=== PATIENT | male | born 1950 | race African-American/Black ===

== ENCOUNTER 2022-05-05 09:07 | Inpatient (IN) | payer MEDICARE ==
[~2022-05-05] VITALS: Ht 177.8 cm; Wt 77.1 kg
[2022-05-05] MEDS ORDERED: SODIUM CHLORIDE 0.9% 1000ML 1,000 ML IV STA ×2 (09:50→12:54)
[2022-05-05 10:13] LABS: BASOPHILS % 0.2 % (0.0-1.0); EOSINOPHILS % 0.1 % (0.0-6.0); HEMOGLOBIN 13.6 g/dL (14.0-18.0); LYMPHOCYTES # (AUTO) 0.8 (1.0-3.2); LYMPHOCYTES % 5.8 % (18.0-39.1); MEAN CORPUSCULAR HEMOGLOBIN 26.8 pg (28-32); MEAN CORPUSCULAR HGB CONC 32.4 g/dL (31-35); MEAN CORPUSCULAR VOLUME 82.7 fL (81-99); MONOCYTES % 7.9 % (4.4-11.3); NEUTROPHILS # (AUTO) 11.1 (2.1-6.9); NEUTROPHILS % 85.8 % (38.7-80.0); PLATELET COUNT 202 x10e3/uL (140-360); RED BLOOD COUNT 5.08 x10e6/uL (4.3-5.7); RED CELL DISTRIBUTION WIDTH 18.8 % (11.7-14.4)
[2022-05-05 10:18] LABS: INR 1.12; PROTHROMBIN TIME 15.4 seconds (11.9-14.5)
[2022-05-05 10:19] LABS: PARTIAL THROMBOPLASTIN TIME 40.5 seconds (23.8-35.5)
[2022-05-05 10:26] LABS: ALANINE AMINOTRANSFERASE 19 IU/L (0-55); ALBUMIN/GLOBULIN RATIO 0.7 (0.8-2.0); ALKALINE PHOSPHATASE 69 IU/L (40-150); ANION GAP 13.8 mmol/L (8-16); BLOOD UREA NITROGEN 16 mg/dL (7-26); BUN/CREATININE RATIO 13 (6-25); CALCIUM 8.7 mg/dL (8.4-10.2); CARBON DIOXIDE 29 mmol/L (22-29); CHLORIDE 99 mmol/L (98-107); CREATINE KINASE 111 IU/L (30-200); CREATININE, SERUM 1.23 mg/dL (0.72-1.25); GLUCOSE 130 mg/dL (74-118); MAGNESIUM 2.5 MG/DL (1.3-2.1); POTASSIUM 3.8 mmol/L (3.5-5.1); SODIUM 138 mmol/L (136-145)
[2022-05-05] MEDS ORDERED: HYDROCODONE/APAP 5MG-325MG TAB PO ONE (10:30)
[2022-05-05] MEDS ORDERED: IOPAMIDOL 370 MG/ML 100 ML INFUS..BTL INJ ONE (11:31)
[2022-05-05] MEDS ORDERED: ALBUTEROL SULFATE HFA 8GM INHALATION AEROSOL INH PRN (12:15)
[2022-05-05] MEDS ORDERED: ONDANSETRON HCL INJ 2MG/ML 2ML 2 MG/ML VIAL IV PRN (13:30)
[2022-05-05] MEDS: IPRATROPIUM BROMIDE 0.02% 2.5 ML NEB NEB SCH ×2 (13:55→20:05)
[2022-05-05] MEDS: ALBUTEROL SULF 0.083% NEB SOLN 3 ML NEB NEB SCH ×3 (13:55→23:45)
[2022-05-05] MEDS: SODIUM CHLORIDE 0.9% 1000ML 1,000 ML IV SCH ×2 (15:15→21:44)
[2022-05-05] MEDS: HYDROCODONE/APAP 5MG-325MG TAB PO PRN ×2 (16:38→21:41)
[2022-05-05 17:44] VITALS: BP 128/71
[2022-05-05 17:46] VITALS: BP 128/71
[2022-05-05 17:49] VITALS: BP 128/71
[2022-05-05 18:13] LABS: CREATINE KINASE 101 IU/L (30-200)
[2022-05-05] MEDS ORDERED: ELIQUIS2.5 MG PO (18:13)
[2022-05-05] MEDS ORDERED: METOPROLOL SUCC50 MG PO (18:13)
[2022-05-05 20:00] VITALS: BP 114/77
[2022-05-05 20:30] VITALS: BP 114/77
[2022-05-06] VITALS (8 sets, daily range): BP systolic 103–141; BP diastolic 60–78
[2022-05-06] MEDS ORDERED: ALBUTEROL/IPRATROPIUM 3 ML NEB NEB PRN
[2022-05-06] MEDS ORDERED: ACETAMINOPHEN 325 MG TAB PO PRN
[2022-05-06] MEDS ORDERED: MAGNESIUM/ALUMINUM/SIMETHICONE 30 ML UDC PO PRN
[2022-05-06] MEDS: APIXAB 2.5 MG TABLET PO SCH ×2 (00:56→08:50)
[2022-05-06] MEDS: METHYLPREDNISOLONE SOD SUCC 40 MG/ML VIAL 1ML IV SCH ×4 (00:57→20:52)
[2022-05-06] MEDS: ALBUTEROL/IPRATROPIUM 3 ML NEB NEB SCH ×4 (03:15→20:25)
[2022-05-06] MEDS: HYDROCODONE/APAP 5MG-325MG TAB PO PRN ×2 (03:37→11:54)
[2022-05-06] MEDS: METOPROLOL SUCCINATE 50 MG TAB XL PO SCH ×2 (06:00→08:51)
[2022-05-06 06:10] LABS: BASOPHILS % 0.2 % (0.0-1.0); HEMATOCRIT 38.4 % (38.2-49.6); HEMOGLOBIN 12.4 g/dL (14.0-18.0); LYMPHOCYTES # (AUTO) 0.3 (1.0-3.2); LYMPHOCYTES % 2.7 % (18.0-39.1); MEAN CORPUSCULAR HEMOGLOBIN 26.6 pg (28-32); MEAN CORPUSCULAR HGB CONC 32.3 g/dL (31-35); MEAN CORPUSCULAR VOLUME 82.2 fL (81-99); MONOCYTES # (AUTO) 0.2 (0.2-0.8); NEUTROPHILS # (AUTO) 11.1 (2.1-6.9); NEUTROPHILS % 94.8 % (38.7-80.0); PLATELET COUNT 210 x10e3/uL (140-360); RED BLOOD COUNT 4.67 x10e6/uL (4.3-5.7); RED CELL DISTRIBUTION WIDTH 18.7 % (11.7-14.4)
[2022-05-06 06:48] LABS: ALBUMIN 2.7 g/dL (3.5-5.0); ALBUMIN/GLOBULIN RATIO 0.7 (0.8-2.0); ANION GAP 17.9 mmol/L (8-16); CALCIUM 8.4 mg/dL (8.4-10.2); CREATININE, SERUM 0.87 mg/dL (0.72-1.25); POTASSIUM 3.9 mmol/L (3.5-5.1)
[2022-05-06 07:26] LABS: CREATINE KINASE MB 1.2 ng/mL (0-5.0)
[2022-05-06] MEDS ORDERED: ALPRAZOLAM 0.25 MG TAB PO PRN (08:15)
[2022-05-06] MEDS: FAMOTIDINE 20 MG TAB PO SCH ×2 (08:50→17:17)
[2022-05-06] MEDS ORDERED: CITRATE OF MAGNESIA 300ML BOTTLE PO ONE (10:15)
[2022-05-06] MEDS ORDERED: POLYETHYLENE GLYCOL 3350 17 GM PACK PO PRN (10:15)
[2022-05-06] MEDS ORDERED: NICOTINE 14 MG/EA PATCH TOP PRN (10:30)
[2022-05-06] MEDS ORDERED: MELATONIN 5 MG TABLET PO PRN (11:15)
[2022-05-06] MEDS: POLYETHYLENE GLYCOL 3350 17 GM PACK PO SCH ×2 (11:15→17:19)
[2022-05-06] MEDS: SENNA-S TABLET PO SCH ×2 (11:54→17:17)
[2022-05-06] MEDS: DIAZEPAM 5 MG TAB PO PRN ×2 (14:28→20:53)
[2022-05-06 15:06] LABS: CREATINE KINASE 201 IU/L (30-200)
[2022-05-06] MEDS: SODIUM CHLORIDE 0.9% 1000ML 1,000 ML IV SCH (15:35)
[2022-05-06] MEDS: MIRTAZAPINE 15 MG TAB PO SCH (20:52)
[2022-05-06] MEDS: LACTULOSE SYRUP 20 GM/30 ML UDC PO PRN (20:52)
[2022-05-07] VITALS (9 sets, daily range): BP systolic 120–144; BP diastolic 66–88
[2022-05-07] MEDS: HYDROCODONE/APAP 5MG-325MG TAB PO PRN ×5 (01:24→23:01)
[2022-05-07] MEDS: SODIUM CHLORIDE 0.9% 1000ML 1,000 ML IV SCH ×2 (01:25→11:52)
[2022-05-07] MEDS: ALBUTEROL/IPRATROPIUM 3 ML NEB NEB SCH ×4 (01:50→19:45)
[2022-05-07] MEDS: METHYLPREDNISOLONE SOD SUCC 40 MG/ML VIAL 1ML IV SCH ×3 (05:51→21:41)
[2022-05-07 07:03] LABS: BASOPHILS % 0.1 % (0.0-1.0); HEMOGLOBIN 11.4 g/dL (14.0-18.0); LYMPHOCYTES # (AUTO) 0.7 (1.0-3.2); LYMPHOCYTES % 4.8 % (18.0-39.1); MEAN CORPUSCULAR HEMOGLOBIN 26.8 pg (28-32); MEAN CORPUSCULAR HGB CONC 32.6 g/dL (31-35); MEAN CORPUSCULAR VOLUME 82.2 fL (81-99); MONOCYTES # (AUTO) 0.6 (0.2-0.8); MONOCYTES % 4.3 % (4.4-11.3); NEUTROPHILS # (AUTO) 12.7 (2.1-6.9); NEUTROPHILS % 90.3 % (38.7-80.0); PLATELET COUNT 238 x10e3/uL (140-360); RED BLOOD COUNT 4.26 x10e6/uL (4.3-5.7); RED CELL DISTRIBUTION WIDTH 18.5 % (11.7-14.4)
[2022-05-07 07:26] LABS: INR 1.05; PROTHROMBIN TIME 14.6 seconds (11.9-14.5)
[2022-05-07] MEDS: DIAZEPAM 5 MG TAB PO PRN (08:46)
[2022-05-07] MEDS: AZITHROMYCIN 250 MG TAB PO SCH (08:47)
[2022-05-07] MEDS: FAMOTIDINE 20 MG TAB PO SCH ×2 (08:47→16:04)
[2022-05-07] MEDS: METOPROLOL SUCCINATE 50 MG TAB XL PO SCH (08:47)
[2022-05-07] MEDS: POLYETHYLENE GLYCOL 3350 17 GM PACK PO SCH ×2 (08:49→17:00)
[2022-05-07] MEDS: SENNA-S TABLET PO SCH ×2 (08:50→17:00)
[2022-05-07] MEDS: MIRTAZAPINE 15 MG TAB PO SCH (21:41)
[2022-05-08] VITALS (7 sets, daily range): BP systolic 137–151; BP diastolic 75–90
[2022-05-08] MEDS: ALBUTEROL/IPRATROPIUM 3 ML NEB NEB SCH ×4 (00:35→19:30)
[2022-05-08] MEDS: SODIUM CHLORIDE 0.9% 1000ML 1,000 ML IV SCH ×2 (00:39→16:12)
[2022-05-08] MEDS: DIAZEPAM 5 MG TAB PO PRN ×3 (00:39→13:50)
[2022-05-08] MEDS: METHYLPREDNISOLONE SOD SUCC 40 MG/ML VIAL 1ML IV SCH ×2 (06:00→16:18)
[2022-05-08] MEDS: HYDROCODONE/APAP 5MG-325MG TAB PO PRN ×3 (06:19→16:20)
[2022-05-08] MEDS: FAMOTIDINE 20 MG TAB PO SCH ×2 (07:30→16:14)
[2022-05-08] MEDS: POLYETHYLENE GLYCOL 3350 17 GM PACK PO SCH ×2 (07:37→16:14)
[2022-05-08] MEDS: SENNA-S TABLET PO SCH ×3 (07:37→16:13)
[2022-05-08] MEDS: AZITHROMYCIN 250 MG TAB PO SCH (10:47)
[2022-05-08] MEDS ORDERED: ONDANSETRON HCL 4 MG ORAL DISINTEGRATING TAB PO PRN (13:30)
[2022-05-08] MEDS: LACTULOSE SYRUP 20 GM/30 ML UDC PO PRN (20:39)
[2022-05-08] MEDS: MIRTAZAPINE 15 MG TAB PO SCH (20:43)
[2022-05-09] VITALS: BP 149/92
[2022-05-09] MEDS: ALBUTEROL/IPRATROPIUM 3 ML NEB NEB SCH ×4 (00:47→20:10)
[2022-05-09] MEDS: HYDROCODONE/APAP 5MG-325MG TAB PO PRN ×2 (00:54→09:51)
[2022-05-09] MEDS: SODIUM CHLORIDE 0.9% 1000ML 1,000 ML IV SCH ×2 (04:32→17:12)
[2022-05-09 06:18] LABS: BASOPHILS % 0.1 % (0.0-1.0); EOSINOPHILS % 0.2 % (0.0-6.0); HEMATOCRIT 36.7 % (38.2-49.6); HEMOGLOBIN 11.5 g/dL (14.0-18.0); LYMPHOCYTES # (AUTO) 1.6 (1.0-3.2); LYMPHOCYTES % 18.3 % (18.0-39.1); MEAN CORPUSCULAR HEMOGLOBIN 25.8 pg (28-32); MEAN CORPUSCULAR HGB CONC 31.3 g/dL (31-35); MEAN CORPUSCULAR VOLUME 82.5 fL (81-99); MONOCYTES # (AUTO) 0.8 (0.2-0.8); MONOCYTES % 9.4 % (4.4-11.3); NEUTROPHILS # (AUTO) 6.4 (2.1-6.9); NEUTROPHILS % 71.8 % (38.7-80.0); PLATELET COUNT 307 x10e3/uL (140-360); RED BLOOD COUNT 4.45 x10e6/uL (4.3-5.7); RED CELL DISTRIBUTION WIDTH 18.4 % (11.7-14.4)
[2022-05-09 06:54] LABS: ANION GAP 11.4 mmol/L (8-16); CALCIUM 8.4 mg/dL (8.4-10.2); CREATININE, SERUM 0.93 mg/dL (0.72-1.25); POTASSIUM 3.4 mmol/L (3.5-5.1)
[2022-05-09 07:53] VITALS: BP 140/92
[2022-05-09 08:48] VITALS: BP 140/92
[2022-05-09] MEDS: POLYETHYLENE GLYCOL 3350 17 GM PACK PO SCH ×3 (09:00→16:57)
[2022-05-09] MEDS ORDERED: METOPROLOL SUCCINATE 50 MG TAB XL PO SCH (09:00)
[2022-05-09] MEDS: SENNA-S TABLET PO SCH ×3 (09:00→16:57)
[2022-05-09] MEDS: AZITHROMYCIN 250 MG TAB PO SCH (09:40)
[2022-05-09] MEDS: METHYLPREDNISOLONE SOD SUCC 40 MG/ML VIAL 1ML IV SCH ×2 (09:40→17:18)
[2022-05-09] MEDS: FAMOTIDINE 20 MG TAB PO SCH ×2 (09:41→17:18)
[2022-05-09] MEDS ORDERED: POTASSIUM CHLORIDE 20 MEQ TAB CR PO ONE (10:30)
[2022-05-09 11:51] VITALS: BP 155/101
[2022-05-09] MEDS: DIAZEPAM 5 MG TAB PO PRN ×2 (12:19→19:36)
[2022-05-09 15:52] VITALS: BP 150/91
[2022-05-09 20:00] VITALS: BP 142/94
[2022-05-09] MEDS: MIRTAZAPINE 15 MG TAB PO SCH (20:45)
[2022-05-10] VITALS (7 sets, daily range): BP systolic 104–167; BP diastolic 70–100
[2022-05-10] MEDS: HYDROCODONE/APAP 5MG-325MG TAB PO PRN ×2 (00:53→12:09)
[2022-05-10] MEDS: ALBUTEROL/IPRATROPIUM 3 ML NEB NEB SCH ×4 (01:20→19:45)
[2022-05-10 05:57] LABS: EOSINOPHILS % 0.2 % (0.0-6.0); HEMATOCRIT 36.9 % (38.2-49.6); LYMPHOCYTES # (AUTO) 1.4 (1.0-3.2); LYMPHOCYTES % 14.1 % (18.0-39.1); MEAN CORPUSCULAR HEMOGLOBIN 26.1 pg (28-32); MEAN CORPUSCULAR HGB CONC 32.5 g/dL (31-35); MEAN CORPUSCULAR VOLUME 80.2 fL (81-99); MONOCYTES # (AUTO) 0.8 (0.2-0.8); MONOCYTES % 7.8 % (4.4-11.3); NEUTROPHILS # (AUTO) 7.5 (2.1-6.9); NEUTROPHILS % 77.5 % (38.7-80.0); PLATELET COUNT 405 x10e3/uL (140-360); RED CELL DISTRIBUTION WIDTH 18.4 % (11.7-14.4)
[2022-05-10 06:06] LABS: INR 1.02; PROTHROMBIN TIME 14.3 seconds (11.9-14.5)
[2022-05-10 06:23] LABS: ANION GAP 16.4 mmol/L (8-16); CALCIUM 8.5 mg/dL (8.4-10.2); CREATININE, SERUM 1.02 mg/dL (0.72-1.25); POTASSIUM 3.4 mmol/L (3.5-5.1)
[2022-05-10] MEDS: SODIUM CHLORIDE 0.9% 1000ML 1,000 ML IV SCH ×2 (06:32→20:49)
[2022-05-10] MEDS: FAMOTIDINE 20 MG TAB PO SCH ×2 (07:30→17:14)
[2022-05-10] MEDS: POLYETHYLENE GLYCOL 3350 17 GM PACK PO SCH ×2 (09:00→17:14)
[2022-05-10] MEDS: SENNA-S TABLET PO SCH ×2 (09:00→17:14)
[2022-05-10] MEDS ORDERED: AMLODIPINE BESYLATE 5 MG TAB PO SCH (09:00)
[2022-05-10] MEDS: HYDRALAZINE HCL 20 MG/ML VIAL IV PRN (09:15)
[2022-05-10] MEDS: METHYLPREDNISOLONE SOD SUCC 40 MG/ML VIAL 1ML IV SCH (09:15)
[2022-05-10] MEDS ORDERED: POTASSIUM CHLORIDE 20MEQ/100ML 100 ML IV ONE (10:00)
[2022-05-10] MEDS ORDERED: LIDOCAINE HCL 4% 50 ML BTL ONE (10:29)
[2022-05-10] MEDS ORDERED: LIDOCAINE JELLY 2% 10ML URO-JET ONE (10:33)
[2022-05-10] MEDS: AZITHROMYCIN 250 MG TAB PO SCH (12:08)
[2022-05-10] MEDS: LACTULOSE SYRUP 20 GM/30 ML UDC PO PRN (12:25)
[2022-05-10 12:33] LABS: BODY FLUID APPEARANCE SL.CLOUDY; BODY FLUID COLOR COLORLESS
[2022-05-10] MEDS ORDERED: POVIDONE IODINE 0.05% 0.05 % ML PO ONE (12:41)
[2022-05-10] MEDS ORDERED: ONDANSETRON HCL INJ 2MG/ML 2ML 2 MG/ML VIAL ONE (12:41)
[2022-05-10] MEDS ORDERED: LIDOCAINE HCL 2% LOCAL INJ 5 ML SDV VIAL INJ ONE (12:41)
[2022-05-10] MEDS ORDERED: DEXAMETHASONE SOD PHOS INJ 4 MG/ML SDV ONE (12:41)
[2022-05-10] MEDS ORDERED: SEVOFLURANE INHAL SOLN 250 ML PEN BTL ONE (12:41)
[2022-05-10] MEDS ORDERED: PROPOFOL IV EMULSION 10 MG/ML 20 ML VIAL ONE (12:41)
[2022-05-10] MEDS ORDERED: MIDAZOLAM HCL 2 MG/2 ML VIAL ONE (12:51)
[2022-05-10] MEDS ORDERED: FENTANYL CITRATE/PF 100MCG/2 ML INJ ONE (12:51)
[2022-05-10 12:59] LABS: RBC,BODY FLUID 1000 cells/uL; WBC,BODY FLUID 188 cells/uL
[2022-05-10 14:38] LABS: LYMPHOCYTES,BODY FLUID 5 %; MONO/MACROPHG,BODY FLUID 20 %; NEUTROPHILS,BODY FLUID 75 %
[2022-05-10] MEDS: AMIODARONE HCL 200 MG TAB PO SCH (15:35)
[2022-05-10] MEDS: DIAZEPAM 5 MG TAB PO PRN (17:14)
[2022-05-10] MEDS: MIRTAZAPINE 15 MG TAB PO SCH (20:46)
[2022-05-11] MEDS: ALBUTEROL/IPRATROPIUM 3 ML NEB NEB SCH ×2 (01:00→07:10)
[2022-05-11 04:00] VITALS: BP 179/99
[2022-05-11] MEDS: HYDRALAZINE HCL 20 MG/ML VIAL IV PRN (06:19)
[2022-05-11] MEDS ORDERED: METHYLPREDNISOLONE SOD SUCC 40 MG/ML VIAL 1ML IV SCH (07:30)
[2022-05-11] MEDS: FAMOTIDINE 20 MG TAB PO SCH (07:36)
[2022-05-11] MEDS: DIAZEPAM 5 MG TAB PO PRN (07:36)
[2022-05-11 08:00] VITALS: BP 138/91
[2022-05-11 08:24] VITALS: BP 138/91
[2022-05-11] MEDS: AMIODARONE HCL 200 MG TAB PO SCH (08:51)
[2022-05-11] MEDS: AZITHROMYCIN 250 MG TAB PO SCH (08:51)
[2022-05-11] MEDS: SENNA-S TABLET PO SCH (08:51)
[2022-05-11] MEDS: POLYETHYLENE GLYCOL 3350 17 GM PACK PO SCH (08:54)
[2022-05-11] MEDS ORDERED: AMLODIPINE BESYLATE 5 MG TAB PO SCH (09:00)
[2022-05-11] MEDS: HYDROCODONE/APAP 5MG-325MG TAB PO PRN (09:54)
== END 2022-05-11 10:34 | disposition home or self-care (01) | DRG 871 ==
LOC: ER 09:47 → ERHOLD 13:31 → MED/SURG3 15:50
PROVIDERS: ADMIT Internal Medicine; ATTEND Internal Medicine
PROC: 3E03329 Introduction of Other Anti-infective into Peripheral Vein, Percutaneous Approach (ICD-10-PCS; 2022-05-05)
PROC: 0B948ZZ Drainage of Right Upper Lobe Bronchus, Via Natural or Artificial Opening Endoscopic (ICD-10-PCS; 2022-05-10)
PROC: 0BD88ZX Extraction of Left Upper Lobe Bronchus, Via Natural or Artificial Opening Endoscopic, Diagnostic (ICD-10-PCS; 2022-05-10)
PROC: 0BD48ZX Extraction of Right Upper Lobe Bronchus, Via Natural or Artificial Opening Endoscopic, Diagnostic (ICD-10-PCS; 2022-05-10)
PROC: 0B988ZZ Drainage of Left Upper Lobe Bronchus, Via Natural or Artificial Opening Endoscopic (ICD-10-PCS; principal; 2022-05-10 10:35)
DX: A41.9 Sepsis, unspecified organism (principal); J18.1 Lobar pneumonia, unspecified organism; J44.0 Chronic obstructive pulmonary disease with (acute) lower respiratory infection; J44.1 Chronic obstructive pulmonary disease with (acute) exacerbation; R91.8 Other nonspecific abnormal finding of lung field; Z86.711 Personal history of pulmonary embolism; Z79.01 Long term (current) use of anticoagulants; I49.1 Atrial premature depolarization; R63.4 Abnormal weight loss; I48.91 Unspecified atrial fibrillation; G47.00 Insomnia, unspecified; F32.9 Major depressive disorder, single episode, unspecified; F41.0 Panic disorder [episodic paroxysmal anxiety]; Z20.822 Contact with and (suspected) exposure to COVID-19; F17.200 Nicotine dependence, unspecified, uncomplicated; R62.7 Adult failure to thrive; Z68.24 Body mass index [BMI] 24.0-24.9, adult; J38.01 Paralysis of vocal cords and larynx, unilateral; Z99.81 Dependence on supplemental oxygen
CPT/HCPCS: 31622; 36415; 71045; 71260; 80048; 80053; 82550; 82553; 83605; 83735; 83880; 84443; 84484; 85025; 85379; 85610; 85730; 86480; 87040; 87070; 87102; 87116; 87205; 87206; 88104; 88112; 88300; 88305; 89051; 93005; 93306; 94640; 94799; 96361; 99285; J0360; J0456; J0696; J1100; J2001; J2250; J2405; J2543; J2920; J3010; J3480; J7030; J7050; Q9967

== ENCOUNTER → 2022-06-05 | Outpatient (CLI) | payer MEDICARE ==
[~2022-06-05] MED LIST: ELIQUIS2.5 MG PO; METOPROLOL SUCC50 MG PO
== END ==
LOC: CT 10:07
PROVIDERS: ATTEND Internal Medicine Pulmonary Disease
DX: R91.8 Other nonspecific abnormal finding of lung field (principal)
CPT/HCPCS: 71250

== ENCOUNTER 2022-06-11 16:37 | Emergency (ER) | payer MEDICARE ==
[~2022-06-11] VITALS: Ht 330.2 cm; Wt 77.1 kg
[2022-06-11 17:00] LABS: BASOPHILS % 0.5 % (0.0-1.0); EOSINOPHILS # (AUTO) 0.2 (0.0-0.4); EOSINOPHILS % 1.8 % (0.0-6.0); HEMATOCRIT 39.5 % (38.2-49.6); HEMOGLOBIN 12.4 g/dL (14.0-18.0); LYMPHOCYTES # (AUTO) 1.2 (1.0-3.2); LYMPHOCYTES % 13.9 % (18.0-39.1); MEAN CORPUSCULAR HEMOGLOBIN 25.9 pg (28-32); MEAN CORPUSCULAR HGB CONC 31.4 g/dL (31-35); MEAN CORPUSCULAR VOLUME 82.5 fL (81-99); MONOCYTES # (AUTO) 0.7 (0.2-0.8); NEUTROPHILS # (AUTO) 6.6 (2.1-6.9); NEUTROPHILS % 75.6 % (38.7-80.0); PLATELET COUNT 673 x10e3/uL (140-360); RED BLOOD COUNT 4.79 x10e6/uL (4.3-5.7); RED CELL DISTRIBUTION WIDTH 19.3 % (11.7-14.4)
[2022-06-11 17:22] LABS: INR 1.02; PARTIAL THROMBOPLASTIN TIME 35.3 seconds (23.8-35.5); PROTHROMBIN TIME 14.3 seconds (11.9-14.5)
[2022-06-11 17:29] LABS: ALANINE AMINOTRANSFERASE 12 IU/L (0-55); ALBUMIN 3.6 g/dL (3.5-5.0); ALBUMIN/GLOBULIN RATIO 0.9 (0.8-2.0); ALKALINE PHOSPHATASE 78 IU/L (40-150); ANION GAP 18.9 mmol/L (8-16); BLOOD UREA NITROGEN 13 mg/dL (7-26); BUN/CREATININE RATIO 9 (6-25); CALCIUM 8.5 mg/dL (8.4-10.2); CARBON DIOXIDE 20 mmol/L (22-29); CHLORIDE 104 mmol/L (98-107); CREATINE KINASE 376 IU/L (30-200); CREATININE, SERUM 1.37 mg/dL (0.72-1.25); GLUCOSE 108 mg/dL (74-118); POTASSIUM 3.9 mmol/L (3.5-5.1); SODIUM 139 mmol/L (136-145)
[2022-06-11] MEDS ORDERED: ASPIRIN 81 MG CHEW TAB PO ONE (18:45)
== END 2022-06-11 19:17 | disposition home or self-care (01) ==
LOC: ER 16:50
DX: R07.89 Other chest pain (principal); R50.9 Fever, unspecified; I10 Essential (primary) hypertension; J44.9 Chronic obstructive pulmonary disease, unspecified; F41.9 Anxiety disorder, unspecified; F32.A Depression, unspecified; Z20.822 Contact with and (suspected) exposure to COVID-19; R94.31 Abnormal electrocardiogram [ECG] [EKG]; F17.210 Nicotine dependence, cigarettes, uncomplicated
CPT/HCPCS: 0223U; 36415; 71045; 80053; 82550; 82553; 84484; 85025; 85379; 85610; 85730; 93005; 99284

== ENCOUNTER 2022-09-01 14:05 | Emergency (ER) | payer MEDICARE ==
[~2022-09-01] VITALS: Ht 330.2 cm; Wt 77.1 kg
[2022-09-01 14:47] LABS: BASOPHILS % 0.3 % (0.0-1.0); EOSINOPHILS % 0.1 % (0.0-6.0); HEMATOCRIT 43.1 % (38.2-49.6); HEMOGLOBIN 13.1 g/dL (14.0-18.0); LYMPHOCYTES # (AUTO) 1.3 (1.0-3.2); MEAN CORPUSCULAR HEMOGLOBIN 25.3 pg (28-32); MEAN CORPUSCULAR HGB CONC 30.4 g/dL (31-35); MEAN CORPUSCULAR VOLUME 83.4 fL (81-99); MONOCYTES % 7.5 % (4.4-11.3); NEUTROPHILS # (AUTO) 10.7 (2.1-6.9); NEUTROPHILS % 81.7 % (38.7-80.0); PLATELET COUNT 197 x10e3/uL (140-360); RED BLOOD COUNT 5.17 x10e6/uL (4.3-5.7); RED CELL DISTRIBUTION WIDTH 19.9 % (11.7-14.4)
[2022-09-01 15:01] LABS: ALBUMIN 3.5 g/dL (3.5-5.0); ALBUMIN/GLOBULIN RATIO 0.9 (0.8-2.0); ANION GAP 15.8 mmol/L (8-16); CALCIUM 8.8 mg/dL (8.4-10.2); CREATININE, SERUM 1.14 mg/dL (0.72-1.25); POTASSIUM 3.8 mmol/L (3.5-5.1)
[2022-09-01] MEDS ORDERED: HYDROCODONE/APAP 5MG-325MG TAB PO ONE (15:30)
[2022-09-01] MEDS ORDERED: IOPAMIDOL 370 MG/ML 100 ML INFUS..BTL INJ ONE (15:55)
[2022-09-01] MEDS ORDERED: DOXYCYCLINE HY100 MG PO (16:36)
[2022-09-01] MEDS ORDERED: AMOX TR-K CLV1 EAC2 PO (16:36)
[2022-09-01 16:42] VITALS: BP 127/84
== END 2022-09-01 16:57 | disposition home or self-care (01) ==
LOC: ER 14:26
DX: R50.9 Fever, unspecified (principal); J18.9 Pneumonia, unspecified organism; R04.2 Hemoptysis; I10 Essential (primary) hypertension; J44.9 Chronic obstructive pulmonary disease, unspecified; F41.9 Anxiety disorder, unspecified; R94.31 Abnormal electrocardiogram [ECG] [EKG]
CPT/HCPCS: 36415; 71260; 80053; 83690; 84484; 85025; 93005; 99284; Q9967

== ENCOUNTER 2022-09-12 04:05 | Emergency (ER) | payer MEDICARE ==
[~2022-09-12] VITALS: Ht 330.2 cm; Wt 77.1 kg
[~2022-09-12 04:05] MED LIST changes: +AMOX TR-K CLV1 EAC2 PO; +DOXYCYCLINE HY100 MG PO
[2022-09-12 04:20] LABS: BASOPHILS % 0.4 % (0.0-1.0); EOSINOPHILS # (AUTO) 0.2 (0.0-0.4); EOSINOPHILS % 2.3 % (0.0-6.0); HEMATOCRIT 40.3 % (38.2-49.6); HEMOGLOBIN 12.2 g/dL (14.0-18.0); LYMPHOCYTES # (AUTO) 2.1 (1.0-3.2); LYMPHOCYTES % 28.9 % (18.0-39.1); MEAN CORPUSCULAR HEMOGLOBIN 24.8 pg (28-32); MEAN CORPUSCULAR HGB CONC 30.3 g/dL (31-35); MEAN CORPUSCULAR VOLUME 81.9 fL (81-99); MONOCYTES # (AUTO) 0.6 (0.2-0.8); MONOCYTES % 8.2 % (4.4-11.3); NEUTROPHILS # (AUTO) 4.4 (2.1-6.9); NEUTROPHILS % 60.1 % (38.7-80.0); PLATELET COUNT 484 x10e3/uL (140-360); RED BLOOD COUNT 4.92 x10e6/uL (4.3-5.7); RED CELL DISTRIBUTION WIDTH 18.6 % (11.7-14.4)
[2022-09-12] MEDS ORDERED: ALBUTEROL/IPRATROPIUM 3 ML NEB NEB ONE (04:30)
[2022-09-12] MEDS ORDERED: METHYLPREDNISOLONE SOD SUCC 125 MG/2ML VIAL IV ONE (04:30)
[2022-09-12 04:43] LABS: ALBUMIN 3.2 g/dL (3.5-5.0); ALBUMIN/GLOBULIN RATIO 0.9 (0.8-2.0); ANION GAP 12.8 mmol/L (8-16); CALCIUM 8.8 mg/dL (8.4-10.2); CREATININE, SERUM 0.91 mg/dL (0.72-1.25); POTASSIUM 3.8 mmol/L (3.5-5.1)
[2022-09-12 04:49] LABS: CREATINE KINASE MB 2.8 ng/mL (0-5.0)
[2022-09-12] MEDS ORDERED: IOPAMIDOL 370 MG/ML 100 ML INFUS..BTL INJ ONE (05:10)
[2022-09-12] MEDS ORDERED: GUAIFENESIN 600 MG TAB PO ONE (05:15)
[2022-09-12] MEDS ORDERED: ALBUTEROL SULF 0.083% NEB SOLN 3 ML NEB NEB STA (05:27)
[2022-09-12] MEDS ORDERED: GUAIFENESIN 600 MG TAB ONE (05:38)
[2022-09-12] MEDS ORDERED: ALBUTEROL SULF 0.083% NEB SOLN 3 ML NEB ONE (05:44)
[2022-09-12 05:49] LABS: CLARITY,URINE CLOUDY (CLEAR); COLOR,URINE YELLOW (YELLOW); KETONES,URINE NEGATIVE (NEGATIVE); LEUKOCYTE ESTERASE ,URINE NEGATIVE (NEGATIVE); NITRITE,URINE NEGATIVE (NEGATIVE); PROTEIN,URINE DIPSTICK NEGATIVE (NEGATIVE); URINE UROBILINOGEN 0.2 mg/dL (0.2 - 1)
[2022-09-12 05:53] LABS: BACTERIA,URINE RARE /HPF; EPITHELIAL CELLS,URINE RARE /LPF; RBC,URINE 0-5 /HPF (0-5); WBC,URINE (MAN) 0-5 /HPF (0-5)
[2022-09-12] MEDS ORDERED: MEDROL4 M2 PO (06:54)
[2022-09-12] MEDS ORDERED: DOXYCYCLINE HY100 M3 PO (06:54)
[2022-09-12] MEDS ORDERED: VENTOLIN HFA18 GM INH (06:54)
== END 2022-09-12 07:56 | disposition home or self-care (01) ==
LOC: ER 04:09
DX: R06.02 Shortness of breath (principal); J44.9 Chronic obstructive pulmonary disease, unspecified; R10.30 Lower abdominal pain, unspecified; R94.31 Abnormal electrocardiogram [ECG] [EKG]
CPT/HCPCS: 36415; 71045; 74177; 80053; 81001; 82550; 82553; 83690; 84484; 85025; 93005; 94640 ×2; 94799; 99284; J2930; Q9967; U0002

== ENCOUNTER 2022-11-27 15:33 | Observation (INO) | payer MEDICARE ==
[~2022-11-27] VITALS: Ht 177.8 cm; Wt 63.5 kg
[~2022-11-27 15:33] MED LIST changes: +DOXYCYCLINE HY100 M3 PO; +MEDROL4 M2 PO; +VENTOLIN HFA18 GM INH
[2022-11-27] MEDS ORDERED: SODIUM CHLORIDE FLUSH 10 ML SYR IV PRN (16:00)
[2022-11-27] MEDS ORDERED: ASPIRIN 81 MG CHEW TAB PO ONE ×2 (16:00→18:15)
[2022-11-27] MEDS ORDERED: ALBUTEROL/IPRATROPIUM 3 ML NEB NEB ONE (16:00)
[2022-11-27 16:08] LABS: BASOPHILS % 0.5 % (0.0-1.0); EOSINOPHILS # (AUTO) 0.1 (0.0-0.4); EOSINOPHILS % 0.9 % (0.0-6.0); HEMATOCRIT 41.2 % (38.2-49.6); LYMPHOCYTES # (AUTO) 1.5 (1.0-3.2); LYMPHOCYTES % 20.8 % (18.0-39.1); MEAN CORPUSCULAR HEMOGLOBIN 25.2 pg (28-32); MEAN CORPUSCULAR HGB CONC 31.6 g/dL (31-35); MONOCYTES # (AUTO) 0.7 (0.2-0.8); MONOCYTES % 9.4 % (4.4-11.3); NEUTROPHILS # (AUTO) 5.1 (2.1-6.9); NEUTROPHILS % 68.1 % (38.7-80.0); PLATELET COUNT 239 x10e3/uL (140-360); RED BLOOD COUNT 5.15 x10e6/uL (4.3-5.7); RED CELL DISTRIBUTION WIDTH 21.2 % (11.7-14.4)
[2022-11-27 16:36] LABS: ALBUMIN 3.3 g/dL (3.5-5.0); ANION GAP 15.5 mmol/L (8-16); CALCIUM 8.7 mg/dL (8.4-10.2); CREATININE, SERUM 1.35 mg/dL (0.72-1.25); POTASSIUM 3.5 mmol/L (3.5-5.1)
[2022-11-27] MEDS ORDERED: SODIUM CHLORIDE 0.9% 1000ML 1,000 ML IV ONE (16:45)
[2022-11-27 17:13] LABS: CLARITY,URINE CLEAR (CLEAR); COLOR,URINE YELLOW (YELLOW); KETONES,URINE NEGATIVE (NEGATIVE); LEUKOCYTE ESTERASE ,URINE NEGATIVE (NEGATIVE); NITRITE,URINE NEGATIVE (NEGATIVE); PROTEIN,URINE DIPSTICK 1+ (NEGATIVE)
[2022-11-27 17:14] LABS: URINE UROBILINOGEN 1 mg/dL (0.2 - 1)
[2022-11-27 17:15] LABS: BENZODIAZEPINES SCREEN,URINE POSITIVE (NEGATIVE)
[2022-11-27 17:17] LABS: AMPHETAMINES SCREEN,URINE NEGATIVE (NEGATIVE); PHENCYCLIDINE SCREEN,URINE NEGATIVE (NEGATIVE)
[2022-11-27 17:37] LABS: BACTERIA,URINE FEW /HPF; EPITHELIAL CELLS,URINE RARE /LPF; RBC,URINE 0-5 /HPF (0-5); WBC,URINE (MAN) 0-5 /HPF (0-5)
[2022-11-27] MEDS ORDERED: ONDANSETRON HCL INJ 2MG/ML 2ML 2 MG/ML VIAL IV PRN (18:15)
[2022-11-28] VITALS: BP 125/87
[2022-11-28 00:30] VITALS: BP 125/87
[2022-11-28 03:35] LABS: CREATINE KINASE MB 1.2 ng/mL (0-5.0)
[2022-11-28] MEDS ORDERED: HYDROCODON-ACE1 EAC9 PO (03:59)
[2022-11-28] MEDS: HYDROCODONE/APAP 10MG-325MG TAB PO PRN ×2 (05:09→15:07)
[2022-11-28 06:25] LABS: BASOPHILS % 0.6 % (0.0-1.0); EOSINOPHILS # (AUTO) 0.2 (0.0-0.4); EOSINOPHILS % 3.6 % (0.0-6.0); HEMOGLOBIN 12.2 g/dL (14.0-18.0); LYMPHOCYTES # (AUTO) 1.2 (1.0-3.2); LYMPHOCYTES % 24.9 % (18.0-39.1); MEAN CORPUSCULAR HEMOGLOBIN 25.4 pg (28-32); MEAN CORPUSCULAR HGB CONC 31.3 g/dL (31-35); MEAN CORPUSCULAR VOLUME 81.1 fL (81-99); MONOCYTES # (AUTO) 0.5 (0.2-0.8); MONOCYTES % 10.5 % (4.4-11.3); NEUTROPHILS % 60.4 % (38.7-80.0); PLATELET COUNT 199 x10e3/uL (140-360); RED BLOOD COUNT 4.81 x10e6/uL (4.3-5.7); RED CELL DISTRIBUTION WIDTH 21.1 % (11.7-14.4)
[2022-11-28 06:55] LABS: ALBUMIN 2.9 g/dL (3.5-5.0); ALBUMIN/GLOBULIN RATIO 0.9 (0.8-2.0); ANION GAP 10.5 mmol/L (8-16); CALCIUM 8.3 mg/dL (8.4-10.2); CREATININE, SERUM 0.93 mg/dL (0.72-1.25); POTASSIUM 3.5 mmol/L (3.5-5.1)
[2022-11-28] MEDS: ASPIRIN 81 MG ENTERIC COATED PO SCH (09:06)
[2022-11-28] MEDS ORDERED: ACETAMINOPHEN 325 MG TAB PO PRN (09:30)
[2022-11-28] MEDS ORDERED: BENZONATATE 100 MG CAP PO PRN (09:30)
[2022-11-28] MEDS: ALBUTEROL/IPRATROPIUM 3 ML NEB NEB SCH ×3 (09:30→19:37)
[2022-11-28] MEDS ORDERED: HYDRALAZINE HCL 20 MG/ML VIAL IV PRN (09:30)
[2022-11-28] MEDS ORDERED: ALBUTEROL/IPRATROPIUM 3 ML NEB NEB PRN (09:30)
[2022-11-28] MEDS: DOXYCYCLINE HYCLATE TABLET 100 MG TAB PO SCH ×2 (09:44→17:29)
[2022-11-28] MEDS: BENZONATATE 100 MG CAP PO SCH ×2 (15:06→19:54)
[2022-11-28 15:25] LABS: CREATINE KINASE MB 1.5 ng/mL (0-5.0)
[2022-11-28 16:45] VITALS: BP 111/84
[2022-11-28] MEDS ORDERED: ENOXAPARIN SOD INJ 40 MG/0.4 ML SYR SC SCH (17:00)
[2022-11-28] MEDS: APIXAB 2.5 MG TABLET PO SCH (17:29)
[2022-11-28 17:32] VITALS: BP 132/91
[2022-11-28] MEDS ORDERED: SODIUM CHLORIDE 0.9% 250ML 250 ML ONE (22:21)
[2022-11-29] MEDS: ALBUTEROL/IPRATROPIUM 3 ML NEB NEB SCH ×2 (00:50→06:30)
[2022-11-29 04:44] VITALS: BP 148/87
[2022-11-29 04:48] VITALS: BP 148/87
[2022-11-29] MEDS: HYDROCODONE/APAP 10MG-325MG TAB PO PRN (06:01)
[2022-11-29] MEDS: APIXAB 2.5 MG TABLET PO SCH (08:19)
[2022-11-29] MEDS: BENZONATATE 100 MG CAP PO SCH (08:19)
[2022-11-29] MEDS: ASPIRIN 81 MG ENTERIC COATED PO SCH (08:19)
[2022-11-29] MEDS: DOXYCYCLINE HYCLATE TABLET 100 MG TAB PO SCH (08:19)
[2022-11-29 08:57] VITALS: BP 166/72
[2022-11-29] MEDS ORDERED: PAXLOVID 300-11 EACH PO (09:19)
[2022-11-29] MEDS ORDERED: DOXYCYCLINE HY100 MG PO (09:20)
[2022-11-29] MEDS ORDERED: [UNRECOGNIZED DRUG - OTHER] (09:21)
[2022-11-29] MEDS ORDERED: BENZONATATE PO (09:23)
== END 2022-11-29 10:12 | disposition home or self-care (01) ==
LOC: ER 15:38 → ERHOLD 18:10 → MED/SURG2 11-28 12:53
PROVIDERS: ADMIT Internal Medicine; ATTEND Internal Medicine
DX: J44.0 Chronic obstructive pulmonary disease with (acute) lower respiratory infection (principal); J18.9 Pneumonia, unspecified organism; J44.1 Chronic obstructive pulmonary disease with (acute) exacerbation; E86.0 Dehydration; E87.0 Hyperosmolality and hypernatremia; F14.10 Cocaine abuse, uncomplicated; Z72.0 Tobacco use; Z20.822 Contact with and (suspected) exposure to COVID-19; Z86.711 Personal history of pulmonary embolism; Z79.01 Long term (current) use of anticoagulants
CPT/HCPCS: 36415 ×2; 71260; 74174; 80053 ×2; 80307; 81001; 82550; 82553; 83690; 83880; 84484 ×2; 85025 ×2; 93005; 94640 ×3; 94760; 94799 ×3; 96360; 96361; 99284; G0378 ×3; J0696 ×2; J7030; J7050; U0002

== ENCOUNTER 2023-06-07 03:42 | Inpatient (IN) | payer MEDICARE ==
[2023-06-07] VITALS (14 sets, daily range): BP systolic 113–146; BP diastolic 80–93; PULSE 90–106; RESP 16–21; TEMP 97.6–98.3; O2SAT 97–100
[~2023-06-07] VITALS: Ht 208.3 cm; Wt 66.7 kg
[~2023-06-07 03:42] MED LIST changes: +ATORVASTATIN CA10 MG PO; +BENZONATATE PO; +BUDESONIDE0.5 MG/2 M; +DIAZEPAM5 MG PO; +ELIQUIS5 MG PO; +ESCITALOPRAM OX20 MG PO; +HYDROCODON-ACE1 EAC9 PO; +IPRAT-ALBUT 0.5-3 ML; +PAXLOVID 300-11 EACH PO; +PREDNISONE10 MG PO; +TRAZODONE HCL100 MG PO; +ZITHROMAX250 MG PO; +[UNRECOGNIZED DRUG - OTHER]
[2023-06-07] MEDS ORDERED: ALBUTEROL SULF 0.083% NEB SOLN 3 ML NEB NEB STA (03:55)
[2023-06-07] MEDS ORDERED: IPRATROPIUM BROMIDE 0.02% 2.5 ML NEB NEB ONE (04:00)
[2023-06-07] MEDS ORDERED: METHYLPREDNISOLONE SOD SUCC 125 MG/2ML VIAL IV ONE (04:00)
[2023-06-07 04:11] LABS: BASOPHILS % 0.2 % (0.0-1.0); EOSINOPHILS % 0.1 % (0.0-6.0); HEMATOCRIT 34.9 % (38.2-49.6); HEMOGLOBIN 11.7 g/dL (14.0-18.0); LYMPHOCYTES # (AUTO) 1.7 (1.0-3.2); LYMPHOCYTES % 15.8 % (18.0-39.1); MEAN CORPUSCULAR HEMOGLOBIN 27.5 pg (28-32); MEAN CORPUSCULAR HGB CONC 33.5 g/dL (31-35); MEAN CORPUSCULAR VOLUME 81.9 fL (81-99); MONOCYTES # (AUTO) 0.7 (0.2-0.8); MONOCYTES % 6.1 % (4.4-11.3); NEUTROPHILS # (AUTO) 8.3 (2.1-6.9); NEUTROPHILS % 77.5 % (38.7-80.0); PLATELET COUNT 342 x10e3/uL (140-360); RED BLOOD COUNT 4.26 x10e6/uL (4.3-5.7); RED CELL DISTRIBUTION WIDTH 16.8 % (11.7-14.4); WHITE BLOOD COUNT 10.65 x10e3/uL (4.8-10.8)
[2023-06-07 04:47] LABS: ALBUMIN 3.2 g/dL (3.5-5.0); ALBUMIN/GLOBULIN RATIO 1.3 (0.8-2.0); ANION GAP 11.7 mmol/L (8-16); CALCIUM 8.3 mg/dL (8.4-10.2); CREATININE, SERUM 0.87 mg/dL (0.72-1.25); POTASSIUM 3.7 mmol/L (3.5-5.1)
[2023-06-07] MEDS ORDERED: SODIUM CHLORIDE 0.9% 1000ML 1,000 ML IV ONE (05:15)
[2023-06-07] MEDS ORDERED: LORAZEPAM INJ 2 MG/ML VIAL IV PRN (05:30)
[2023-06-07] MEDS: ALBUTEROL/IPRATROPIUM 3 ML NEB NEB SCH ×5 (08:12→22:49)
[2023-06-07] MEDS ORDERED: ACETAMINOPHEN/CODEINE 300MG - 30MG TAB PO PRN (08:30)
[2023-06-07] MEDS ORDERED: ACETAMINOPHEN 325 MG TAB PO PRN (08:30)
[2023-06-07] MEDS ORDERED: LEVOFLOXACIN 500 MG TAB PO SCH (08:30)
[2023-06-07] MEDS ORDERED: TRIAMCINOLONE ACET 40 MG/ML VIAL IM ONE (09:15)
[2023-06-07] MEDS: APIXABAN 5 MG TABLET PO SCH ×2 (09:25→16:55)
[2023-06-07] MEDS: DIAZEPAM 5 MG TAB PO PRN ×2 (09:25→20:45)
[2023-06-07] MEDS ORDERED: METHYLPREDNISOLONE SOD SUCC 40 MG/ML VIAL 1ML IV SCH ×2 (12:00→14:00)
[2023-06-07 14:09] LABS: ABG HCO3 26 mmol/L (22-26); ABG PCO2 44 mmHg (35-45); ABG PH 7.37 (7.35-7.45); ABG PO2 105 mmHg (80-105); ABG TCO2 27
[2023-06-07] MEDS: HYDROCODONE/APAP 7.5MG-325MG 1 EA TAB PO PRN ×2 (16:05→20:44)
[2023-06-07] MEDS: METHYLPREDNISOLONE SOD SUCC 40 MG/ML VIAL 1ML IV SCH (16:55)
[2023-06-07] MEDS: BUDESONIDE/FORMOTEROL 160/4.5MCG INHALER INH SCH (20:01)
[2023-06-07] MEDS: TRAZODONE HCL 50 MG TAB PO SCH (20:44)
[2023-06-07] MEDS: ATORVASTATIN 10 MG TAB PO SCH (20:45)
[2023-06-08] VITALS (13 sets, daily range): BP systolic 107–147; BP diastolic 63–99; PULSE 57–110; RESP 18–22; TEMP 97.4–98.7; O2SAT 92–100
[2023-06-08] MEDS: HYDROCODONE/APAP 7.5MG-325MG 1 EA TAB PO PRN ×4 (02:07→20:47)
[2023-06-08] MEDS: ALBUTEROL/IPRATROPIUM 3 ML NEB NEB SCH ×6 (02:09→23:31)
[2023-06-08 05:15] LABS: BASOPHILS % 0.1 % (0.0-1.0); HEMATOCRIT 32.2 % (38.2-49.6); HEMOGLOBIN 10.6 g/dL (14.0-18.0); LYMPHOCYTES # (AUTO) 1.2 (1.0-3.2); LYMPHOCYTES % 10.5 % (18.0-39.1); MEAN CORPUSCULAR HEMOGLOBIN 27.5 pg (28-32); MEAN CORPUSCULAR HGB CONC 32.9 g/dL (31-35); MEAN CORPUSCULAR VOLUME 83.6 fL (81-99); MONOCYTES # (AUTO) 0.9 (0.2-0.8); MONOCYTES % 7.9 % (4.4-11.3); NEUTROPHILS # (AUTO) 9.1 (2.1-6.9); NEUTROPHILS % 81.1 % (38.7-80.0); PLATELET COUNT 316 x10e3/uL (140-360); RED BLOOD COUNT 3.85 x10e6/uL (4.3-5.7); RED CELL DISTRIBUTION WIDTH 16.5 % (11.7-14.4)
[2023-06-08 05:59] LABS: ANION GAP 13.3 mmol/L (8-16); CALCIUM 8.8 mg/dL (8.4-10.2); CREATININE, SERUM 0.85 mg/dL (0.72-1.25); POTASSIUM 4.3 mmol/L (3.5-5.1)
[2023-06-08 06:31] LABS: CREATINE KINASE 144 IU/L (30-200)
[2023-06-08] MEDS: DIAZEPAM 5 MG TAB PO PRN ×2 (06:39→12:44)
[2023-06-08] MEDS: BUDESONIDE/FORMOTEROL 160/4.5MCG INHALER INH SCH ×2 (07:08→19:30)
[2023-06-08] MEDS: METHYLPREDNISOLONE SOD SUCC 40 MG/ML VIAL 1ML IV SCH ×2 (09:11→16:04)
[2023-06-08] MEDS: APIXABAN 5 MG TABLET PO SCH ×2 (09:11→16:06)
[2023-06-08] MEDS: ATORVASTATIN 10 MG TAB PO SCH (20:44)
[2023-06-08] MEDS: TRAZODONE HCL 50 MG TAB PO SCH (20:44)
[2023-06-09] VITALS (13 sets, daily range): BP systolic 106–148; BP diastolic 68–96; PULSE 88–109; RESP 18–24; TEMP 97.8–98.7; O2SAT 95–100
[2023-06-09] MEDS: ALBUTEROL/IPRATROPIUM 3 ML NEB NEB SCH ×6 (02:30→23:16)
[2023-06-09] MEDS: DIAZEPAM 5 MG TAB PO PRN ×3 (05:30→23:11)
[2023-06-09] MEDS: BUDESONIDE/FORMOTEROL 160/4.5MCG INHALER INH SCH ×2 (06:57→19:29)
[2023-06-09] MEDS: METHYLPREDNISOLONE SOD SUCC 40 MG/ML VIAL 1ML IV SCH ×3 (09:55→16:25)
[2023-06-09] MEDS: HYDROCODONE/APAP 7.5MG-325MG 1 EA TAB PO PRN ×3 (09:55→23:12)
[2023-06-09] MEDS: APIXABAN 5 MG TABLET PO SCH ×2 (09:55→16:19)
[2023-06-09] MEDS ORDERED: CITRATE OF MAGNESIA 300ML BOTTLE PO PRN (10:45)
[2023-06-09] MEDS ORDERED: METHYLPREDNISOLONE SOD SUCC 40 MG/ML VIAL 1ML IV SCH (21:00)
[2023-06-09] MEDS: ATORVASTATIN 10 MG TAB PO SCH (21:07)
[2023-06-09] MEDS: TRAZODONE HCL 50 MG TAB PO SCH (21:08)
[2023-06-10] VITALS (13 sets, daily range): BP systolic 116–153; BP diastolic 65–93; PULSE 89–115; RESP 16–23; TEMP 97.3–98.6; O2SAT 95–100
[2023-06-10] MEDS: ALBUTEROL/IPRATROPIUM 3 ML NEB NEB SCH ×4 (03:00→19:46)
[2023-06-10] MEDS: ONDANSETRON HCL 4 MG ORAL DISINTEGRATING TAB PO PRN ×3 (03:02→15:16)
[2023-06-10] MEDS: BUDESONIDE/FORMOTEROL 160/4.5MCG INHALER INH SCH ×2 (06:27→19:46)
[2023-06-10] MEDS: METHYLPREDNISOLONE SOD SUCC 40 MG/ML VIAL 1ML IV SCH ×2 (09:38→20:53)
[2023-06-10] MEDS: HYDROCODONE/APAP 7.5MG-325MG 1 EA TAB PO PRN ×3 (09:38→22:26)
[2023-06-10] MEDS: APIXABAN 5 MG TABLET PO SCH ×2 (09:38→16:25)
[2023-06-10] MEDS: DIAZEPAM 5 MG TAB PO PRN ×2 (09:38→18:10)
[2023-06-10] MEDS: ATORVASTATIN 10 MG TAB PO SCH (20:53)
[2023-06-10] MEDS: TRAZODONE HCL 50 MG TAB PO SCH (20:53)
[2023-06-11] VITALS (11 sets, daily range): BP systolic 124–151; BP diastolic 77–92; PULSE 78–115; RESP 16–24; TEMP 97.9–99.1; O2SAT 97–100
[2023-06-11] MEDS: ALBUTEROL/IPRATROPIUM 3 ML NEB NEB SCH ×4 (00:11→19:13)
[2023-06-11] MEDS: HYDROCODONE/APAP 7.5MG-325MG 1 EA TAB PO PRN ×3 (03:43→20:46)
[2023-06-11] MEDS: DIAZEPAM 5 MG TAB PO PRN ×3 (03:43→20:38)
[2023-06-11] MEDS: ONDANSETRON HCL 4 MG ORAL DISINTEGRATING TAB PO PRN ×3 (03:44→20:45)
[2023-06-11 05:09] LABS: BASOPHILS % 0.1 % (0.0-1.0); HEMATOCRIT 33.1 % (38.2-49.6); HEMOGLOBIN 10.8 g/dL (14.0-18.0); LYMPHOCYTES # (AUTO) 0.9 (1.0-3.2); LYMPHOCYTES % 6.8 % (18.0-39.1); MEAN CORPUSCULAR HEMOGLOBIN 27.5 pg (28-32); MEAN CORPUSCULAR HGB CONC 32.6 g/dL (31-35); MEAN CORPUSCULAR VOLUME 84.2 fL (81-99); MONOCYTES # (AUTO) 0.4 (0.2-0.8); MONOCYTES % 3.1 % (4.4-11.3); NEUTROPHILS # (AUTO) 11.5 (2.1-6.9); NEUTROPHILS % 89.6 % (38.7-80.0); PLATELET COUNT 337 x10e3/uL (140-360); RED BLOOD COUNT 3.93 x10e6/uL (4.3-5.7); RED CELL DISTRIBUTION WIDTH 16.8 % (11.7-14.4); WHITE BLOOD COUNT 12.88 x10e3/uL (4.8-10.8)
[2023-06-11 05:26] LABS: ANION GAP 13.3 mmol/L (8-16); CALCIUM 8.9 mg/dL (8.4-10.2); CREATININE, SERUM 0.95 mg/dL (0.72-1.25); POTASSIUM 5.3 mmol/L (3.5-5.1)
[2023-06-11] MEDS: BUDESONIDE/FORMOTEROL 160/4.5MCG INHALER INH SCH ×2 (07:08→19:31)
[2023-06-11] MEDS: PREDNISONE 20 MG TAB PO SCH (09:18)
[2023-06-11] MEDS: APIXABAN 5 MG TABLET PO SCH ×2 (09:18→15:52)
[2023-06-11] MEDS: ATORVASTATIN 10 MG TAB PO SCH (20:38)
[2023-06-11] MEDS: TRAZODONE HCL 50 MG TAB PO SCH (20:39)
[2023-06-12] VITALS (8 sets, daily range): BP systolic 98–133; BP diastolic 69–94; PULSE 86–102; RESP 20–22; TEMP 98.3–98.9; O2SAT 94–100
[2023-06-12] MEDS: ALBUTEROL/IPRATROPIUM 3 ML NEB NEB SCH ×2 (00:15→07:35)
[2023-06-12] MEDS: ONDANSETRON HCL 4 MG ORAL DISINTEGRATING TAB PO PRN ×2 (01:58→09:33)
[2023-06-12] MEDS: BUDESONIDE/FORMOTEROL 160/4.5MCG INHALER INH SCH (07:36)
[2023-06-12] MEDS ORDERED: MAGNESIUM HYDROXIDE 30 ML UDC PO PRN (08:45)
[2023-06-12] MEDS: HYDROCODONE/APAP 7.5MG-325MG 1 EA TAB PO PRN (09:29)
[2023-06-12] MEDS: APIXABAN 5 MG TABLET PO SCH (09:29)
[2023-06-12] MEDS: PREDNISONE 20 MG TAB PO SCH (09:29)
[2023-06-12] MEDS ORDERED: MAGNESIUM HYDROXIDE 30 ML UDC PO ONE (09:30)
[2023-06-12] MEDS ORDERED: CITRATE OF MAGNESIA 300ML BOTTLE PO ONE (09:30)
[2023-06-12] MEDS: DIAZEPAM 5 MG TAB PO PRN ×2 (09:33→15:17)
[2023-06-12] MEDS ORDERED: BISACODYL 5 MG TAB EC PO ONE (10:15)
== END 2023-06-12 15:44 | disposition home or self-care (01) | DRG 190 ==
LOC: ER 03:45 → ERHOLD 05:11 → MED/SURG 05:42 → OBSVTOIN 08:33
PROVIDERS: ADMIT Internal Medicine; ATTEND Internal Medicine
DX: J43.9 Emphysema, unspecified (principal); J18.9 Pneumonia, unspecified organism; F11.20 Opioid dependence, uncomplicated; Z68.1 Body mass index [BMI] 19.9 or less, adult; I10 Essential (primary) hypertension; I48.91 Unspecified atrial fibrillation; M54.9 Dorsalgia, unspecified; G89.29 Other chronic pain; I45.10 Unspecified right bundle-branch block; Z51.5 Encounter for palliative care; R91.1 Solitary pulmonary nodule; E78.5 Hyperlipidemia, unspecified; F32.9 Major depressive disorder, single episode, unspecified; F41.9 Anxiety disorder, unspecified; R63.4 Abnormal weight loss; J20.9 Acute bronchitis, unspecified; Z91.148 Patient's other noncompliance with medication regimen for other reason; Z11.52 Encounter for screening for COVID-19; Z87.891 Personal history of nicotine dependence; Z99.81 Dependence on supplemental oxygen; Z79.01 Long term (current) use of anticoagulants; Z91.199 Patient's noncompliance with other medical treatment and regimen due to unspecified reason
CPT/HCPCS: 36415; 36600; 71045; 71250; 80048; 80053; 82550; 82805; 83605; 83880; 84484; 85025; 87040; 87400; 93005; 94640; 94664; 94667; 94668; 94799; 99285; J0696; J2060; J2920; J2930; J3301; J7030; J7512; Q0162; U0002